=== PATIENT | male | born 1955 | race Caucasian/White ===

== ENCOUNTER 2018-10-22 19:31 | Emergency (ER) | payer MEDICARE, MEDICAID ==
[2018-10-22 20:16] VITALS: BP 170/63
--- NOTE | 2018-10-22 22:05 | EDM.PDOC ---
ED HPI GENERAL MEDICAL PROBLEM - General Chief Complaint: General Stated Complaint: MEDICAL Time Seen by Provider: 10/22/18 20:17 Source of Information: Reports: Patient, Other (Caregiver) History Limitations: Reports: Physical Impairment, Other (Mental Impairment, baseline ) - History of Present Illness INITIAL COMMENTS - FREE TEXT/NARRATIVE: Pleasant 63-year-old gentleman presents with caregiver from care home for concerns regarding possible urinary tract infection. Patient has a history of urinary tract infections in the past. Patient has had mild fevers with chills and sweats slight decreased appetite over the course of the last 2-3 days. He did not eat lunch or dinner this evening. Patient does not have any diarrhea or constipation. He does not complain of overt dysuria but does have a history of urinary tract infections. Patient has not had a cough or upper respiratory tract symptoms. Patient has otherwise been alert and cooperative with care just decreased appetite and fever concerns regarding recurrent urinary tract infection. Chart was reviewed patient did have a urine tract infection in August 2014 urine culture was positive for Escherichia coli which is pansensitive. Onset: Gradual Duration: Day(s): (3-4) Severity: Moderate Improves with: Reports: None Worsens with: Reports: None Associated Symptoms: Reports: Fever/Chills, Loss of Appetite - Related Data Allergies Allergy/AdvReac Type Severity Reaction Status Date / Time No Known Allergies Allergy Verified 10/22/18 20:08 Home Meds: Home Meds *Cranberry Tablet 1 tab PO DAILY 08/23/14 [History] Aspirin [Morgan Chewable Aspirin] 1 tab PO DAILY 08/23/14 [History] Docusate Sodium [Colace] 100 mg PO DAILY 08/23/14 [History] [place]-3 Fatty Acids [[place]-3] 680 mg PO DAILY 08/23/14 [History] Saw [place] 160 mg PO BID 08/23/14 [History] Bimatoprost [LUMIGAN 0.01% Ophth Soln] 1 drop EYEBOTH BEDTIME 10/22/18 [History] Cefdinir [Omnicef 250 MG/5 ML Susp] 300 mg PO BID 10 Days #120 bottle 10/22/18 [ Rx] Chlorhexidine Gluconate 1 dose PO BEDTIME 10/22/18 [History] Multivitamin [Multivitamins] 1 each PO DAILY 10/22/18 [History] Timolol Maleate [Timoptic 0.5% Ophth Soln] 1 drop EYEBOTH DAILY 10/22/18 [ History] Past Medical History HEENT History: Reports: Glaucoma, Impaired Vision Genitourinary History: Reports: UTI, Recurrent Psychiatric History: Reports: Learning Disability Social & Family History - Tobacco Use Smoking Status *Q: Never Smoker - Caffeine Use Caffeine Use: Reports: Coffee - Recreational Drug Use Recreational Drug Use: No - Living Situation & Occupation Living situation: Reports: Single (Lives in care home with care givers) ED ROS GENERAL - Review of Systems Review Of Systems: ROS reveals no pertinent complaints other than HPI. ED EXAM, RENAL/ - Physical Exam Exam: See Below Exam Limited By: Other (Mental Limitations) General Appearance: Alert, WD/WN, No Apparent Distress Ears: Normal External Exam, Normal Canal, Hearing Grossly Normal, Normal TMs Nose: Normal Inspection, Normal Mucosa, No Blood Throat/Mouth: Normal Inspection, Normal Lips, Normal Teeth, Normal Gums, Normal Oropharynx, Normal Voice, No Airway Compromise Head: Normocephalic Respiratory/Chest: No Respiratory Distress, Lungs Clear, Normal Breath Sounds, No Accessory Muscle Use, Chest Non-Tender Cardiovascular: Normal Peripheral Pulses, Regular Rate, Rhythm, No Edema, No Gallop, No JVD, No Murmur, No Rub GI/Abdominal: Normal Bowel Sounds, Soft, No Organomegaly, Tender (across lower abdomen to palpation ) (Male) Exam: Deferred Rectal (Males) Exam: Deferred Back Exam: No: CVA Tenderness (R), CVA Tenderness (L) Extremities: Normal Inspection, Normal Range of Motion, Non-Tender, Normal Capillary Refill, No Pedal Edema Neurological: Alert, Oriented, CN II-XII Intact, Normal Cognition (baseline per caregiver. ), Normal Gait, Normal Reflexes, No Motor/Sensory Deficits Psychiatric: Normal Affect, Normal Mood, Other (baseline per caregiver. He is anxious to return to care home. ) Skin Exam: Warm, Dry, Intact, Normal Color Lymphatic: No Adenopathy Course - Vital Signs Last Recorded V/S: Last Vital Signs Temp 37.0 C 10/22/18 20:16 Pulse 60 10/22/18 20:16 Resp 17 10/22/18 20:16 BP 170/63 H 10/22/18 20:16 Pulse Ox 98 10/22/18 20:16 - Orders/Labs/Meds Orders: Active Orders 24 hr Category Date Time Status CULTURE URINE [RM] Routine Lab 10/22/18 20:00 Received Labs: Laboratory Tests 10/22/18 10/22/18 10/22/18 Range/Units 20:25 20:25 21:04 WBC 4.4 L (4.5-11.0) K/uL RBC 4.10 L (4.30-5.90) M/uL Hgb 12.7 (12.0-15.0) g/dL Hct 38.1 L (40.0-54.0) % MCV 93 (80-98) fL MCH 31 (27-31) pg MCHC 33 (32-36) % Plt Count 97 L (150-400) K/uL Neut % (Auto) 81 H (36-66) % Lymph % (Auto) 8 L (24-44) % [place] % (Auto) 9 H (2-6) % Eos % (Auto) 2 (2-4) % Baso % (Auto) 0 (0-1) % Sodium 140 (140-148) mmol/L Potassium 3.9 (3.6-5.2) mmol/L Chloride 101 (100-108) mmol/L Carbon Dioxide 32 (21-32) mmol/L Anion Gap 7.3 (5.0-14.0) mmol/L BUN 26 H (7-18) mg/dL Creatinine 0.9 (0.8-1.3) mg/dL Est Cr Clr Drug Dosing 74.98 mL/min Estimated GFR (MDRD) > 60 (>60) Glucose 145 H (74-106) mg/dL Calcium 8.7 (8.5-10.1) mg/dL Total Bilirubin 0.9 (0.2-1.0) mg/dL AST 24 (15-37) U/L ALT 24 (12-78) U/L Alkaline Phosphatase 89 (46-116) U/L Total Protein 6.8 (6.4-8.2) g/dL Albumin 3.5 (3.4-5.0) g/dL Globulin 3.3 (2.3-3.5) g/dL Albumin/Globulin Ratio 1.1 L (1.2-2.2) Urine Color Yellow Urine Appearance Slightly cloudy Urine pH 5.0 (4.5-8.0) Ur Specific [place] 1.020 (1.008-1.030) Urine Protein 30 H (NEGATIVE) mg/dL Urine Glucose (UA) Normal (NEGATIVE) mg/dL Urine Ketones Negative (NEGATIVE) mg/dL Urine Occult Blood Moderate (NEGATIVE) Urine Nitrite Negative (NEGAITVE) Urine Bilirubin Negative (NEGATIVE) Urine Urobilinogen Normal (NORMAL) mg/dL Ur Leukocyte Esterase Large (NEGATIVE) Urine RBC 5-10 H (0-5) Urine WBC >100 H (0-5) Ur Epithelial Cells Few Amorphous Sediment Not seen Urine Bacteria Many Urine Mucus Not seen Meds: Medications Discontinued Medications Generic Name Dose Route Start Last Admin Trade Name Freq PRN Reason Stop Dose Admin Ceftriaxone Sodium 1 gm/ 0 gm 10/22/18 22:07 10/22/18 22:28 Lidocaine HCl 2.1 ml IM 10/22/18 22:08 1 inj ONETIME ONE Administration - Re-Assessments/Exams Free Text/Narrative Re-Assessment/Exam: Discussed previous urinary tract infection culture results. I believe patient likely has pyelonephritis due to systemic symptoms at this point in time. Patient's given a dose of Rocephin without adverse reaction. Omnicef for be prescribed. Urine culture will be completed to ensure appropriate antibiotic coverage. Tylenol or ibuprofen recommended increased fluid intake and close follow-up with primary provider to review urine culture results. Return to the ER sooner if concerns change nor symptoms are not improving over the course of next 72 hours. 10/22/18 22:44 Departure - Departure Time of Disposition: 22:45 Disposition: Home, Self-Care 01 Condition: Good Clinical Impression: UTI, Urinary tract infectious disease - Discharge Information Prescriptions: Cefdinir [Omnicef 250 MG/5 ML Susp] 300 mg PO BID 10 Days #120 bottle Instructions: Urine Culture and Sensitivity Testing, Antibiotic Medicine, Adult , Urinary Tract Infection, Adult Referrals: Oscar Beltran MD [Primary Care Provider] - Forms: ED Department Discharge Additional Instructions: UTI 1. PUSH FLUIDS. 2. IBUPROFEN 800MG EVERY 6-8 HOURS FOR COMFORT, FEVER AND PAIN. 3. ORAL ANTIBIOTIC PRESCRIBED. OMNICEF 300mg (6ml) BID x 10 days 120ml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ischarge Instructions Urinary Tract Infection You or your child have been diagnosed with a urinary tract infection, or UTI. The urinary tract includes the kidneys (which make urine/pee), ureters (the tubes that carry urine/pee from the kidneys to the bladder), the bladder (which stores urine/pee), and urethra (the tube that carries urine/pee out of the bladder). Urinary tract infections occur when bacteria travel up the urethra into the bladder (bladder infection) and, in some cases, from there into the kidneys (kidney infection). Generally, every Emergency Department visit should have a follow-up clinic visit with either a primary or a specialty clinic/provider. Please follow-up as instructed by your emergency provider today. Return to the Emergency Department if: You or your child have severe back pain. You or your child are vomiting (throwing up) so that you cannot take your medicine. You or your child have a new fever (had not previously had a fever) over 101 F. You or your child have confusion or are very weak, or feel very ill. Your child seems much more ill, will not wake up, will not respond right, or is crying for a long time and will not calm down. You or your child are showing signs of dehydration. These signs may include decreased urination (pee), dry mouth/gums/tongue, or decreased activity. Follow-up with your provider: Children under 24 months need to be seen by their regular provider within one week after a diagnosis of a UTI. It may be necessary to do some more tests to look at the bud kidney or bladder. You should begin to feel better within 24 48 hours of starting your antibiotic; follow-up with your regular clinic/doctor/provider if this is not the case. Treatment: You will be treated with an antibiotic to kill the bacteria. We have to make an educated guess, based on what we know about common bacteria and antibiotics, as to which antibiotic will work for your infection. We will be correct most times but there will be some cases where the antibiotic chosen is not correct (see urine cultures below). Take a pain medication such as acetaminophen (Tylenol) or ibuprofen (Advil , Motrin, Nuprin). Phenazopyridine (Pyridium, Uristat) is a prescription medication that numbs the bladder to reduce the burning pain of some UTIs. The same medication is available in a non-prescription version (Azo-Standard, Urodol). This medication will change the color of the urine and tears (usually blue or orange) . If you wear contacts, do not wear them while taking this medication as they may be stained by the medication. Urine Cultures: If indicated, a urine culture may have been performed today. This test generally takes 24-48 hours to complete so the results are not known at this time. The results can confirm that an infection is present but also determine which antibiotic is effective for the specific bacteria that is causing the infection. If your urine culture shows that the antibiotic you were given today will not work to treat your infection, we will attempt to contact you to make arrangements to change the antibiotic. If the culture confirms that the antibiotic is effective for your infection, you will not be contacted. We often recommend follow-up with your regular physician/provider on the culture results regardless of this process. Antibiotic Warning: If you have been placed on antibiotics watch for signs of allergic reaction. These include rash, lip swelling, difficulty breathing, wheezing, and dizziness. If you develop any of these symptoms, stop the antibiotic immediately and go to an emergency room or urgent care for evaluation. Probiotics: If you have been given an antibiotic, you may want to also take a probiotic pill or eat yogurt with live cultures. Probiotics have "good bacteria " to help your intestines stay healthy. Studies have shown that probiotics help prevent diarrhea and other intestine problems (including C. diff infection) when you take antibiotics. You can buy these without a prescription in the pharmacy section of the store. If you were given a prescription for medicine here today, be sure toread all of the information (including the package insert) that comes with your prescription. This will include important information about the medicine, its side effects, and any warnings that you need to know about. The pharmacist who fills the prescription can provide more information and answer questions you may have about the medicine. If you have questions or concerns that the pharmacist cannot address, please call or return to the Emergency Department. Remember that you can always come back to the Emergency Department if you are not able to see your regular provider in the amount of time listed above, if you get any new symptoms, or if there is anything that worries you. - My Orders Last 24 Hours: My Active Orders 10/22/18 20:00 CULTURE URINE [RM] Routine - Assessment/Plan Last 24 Hours: My Active Orders 10/22/18 20:00 CULTURE URINE [RM] Routine
[2018-10-22] MEDS ORDERED: cefTRIAXone 1 GM, Lidocaine 1% 2.1 ML IM ONE ×2 (22:07)
== END 2018-10-22 23:02 | disposition home or self-care (01) ==
LOC: JP.ED 19:31
DX: N39.0 Urinary tract infection, site not specified (principal); Z79.82 Long term (current) use of aspirin; Z79.899 Other long term (current) drug therapy
CPT/HCPCS: 36415; 80053; 81001; 85025; 87086; 87088; 87186; 96372; 99283; J0696; J2001

== ENCOUNTER 2022-11-27 19:26 | Emergency (ER) | payer MEDICARE, MEDICAID ==
[2022-11-27 21:54] LABS: APPEARANCE,URINE CLOUDY (CLEAR); BILIRUBIN,URINE NEGATIVE (NEGATIVE); COLOR,URINE YELLOW (YELLOW); GLUCOSE,URINE NEGATIVE (NEGATIVE); KETONES,URINE NEGATIVE (NEGATIVE); LEUKOCYTE ESTERASE,URINE SMALL (NEGATIVE); NITRITE,URINE POSITIVE (NEGATIVE); OCCULT BLOOD,URINE TRACE-INTACT (NEGATIVE); PROTEIN,URINE NEGATIVE (NEGATIVE); UROBILINOGEN,URINE 0.2 EU/dL (0.2-1.0)
[2022-11-27 21:57] LABS: AMORPHOUS SEDIMENT,URINE NOT SEEN; BACTERIA,URINE MANY; EPITHELIAL CELLS,URINE FEW; MUCUS,URINE FEW; RBC,URINE 0-5 (0-5); WBC,URINE 40-50 (0-5)
[2022-11-27 22:07] VITALS: BP 148/52; PULSE 47
== END 2022-11-27 22:19 | disposition home or self-care (01) ==
LOC: JP.ED 19:26
DX: S00.03XA Contusion of scalp, initial encounter (principal); S80.212A Abrasion, left knee, initial encounter; N39.0 Urinary tract infection, site not specified; I25.10 Atherosclerotic heart disease of native coronary artery without angina pectoris; I25.2 Old myocardial infarction; Z79.899 Other long term (current) drug therapy; Z79.82 Long term (current) use of aspirin; W01.198A Fall on same level from slipping, tripping and stumbling with subsequent striking against other object, initial encounter; Y92.480 Sidewalk as the place of occurrence of the external cause
CPT/HCPCS: 70450; 81001; 87086; 87088; 87186; 99284

== ENCOUNTER 2024-08-20 16:17 | Emergency (ER) | payer MEDICARE, MEDICAID ==
[2024-08-20 17:42] LABS: BASOPHILS PERCENT AUTO 0.4 % (0.1-1.3); EOSINOPHILS ABSOLUTE AUTO 0.17 K/uL (0.00-0.40); EOSINOPHILS PERCENT AUTO 3.4 % (0.0-5.4); HEMATOCRIT 29.5 % (38.4-49.7); HEMOGLOBIN 9.9 g/dL (12.9-16.9); IMMATURE GRAN PERCENT AUTO 0.4 % (0.0-0.7); LYMPHOCYTES ABSOLUTE AUTO 1.21 K/uL (0.8-3.3); LYMPHOCYTES PERCENT AUTO 24.5 % (11.4-47.7); MEAN CORPUSCULAR HEMOGLOBIN 31.2 pg (31.6-35.5); MEAN CORPUSCULAR HGB CONC 33.6 g/dL (31.6-35.5); MEAN CORPUSCULAR VOLUME 93.1 fL (81.4-99.0); MONOCYTES ABSOLUTE AUTO 0.46 K/uL (0.20-0.90); MONOCYTES PERCENT AUTO 9.3 % (3.3-12.6); NEUTROPHILS ABSOLUTE AUTO 3.05 K/uL (1.0-7.6); PLATELET COUNT,PLT 134 K/uL (130-375); RED BLOOD CELL COUNT 3.17 M/uL (4.14-5.76); WHITE BLOOD CELL COUNT,WBC 4.9 K/uL (3.2-11.0)
[2024-08-20 17:44] LABS: BASOPHILS ABSOLUTE AUTO 0.02 K/uL (0.00-0.10); IMMATURE GRAN ABSOLUTE AUTO 0.02 K/uL (0.00-0.23)
[2024-08-20 17:57] LABS: CALCIUM 8.3 mg/dL (8.5-10.1); CREATININE 1.8 mg/dL (0.8-1.3); EST CRCL DRUG DOSING (CG) 34.64 mL/min; POTASSIUM,K 4.5 mmol/L (3.6-5.2)
[2024-08-20 17:58] LABS: ANION GAP 4.5 mmol/L (5.0-14.0)
[2024-08-20] MEDS: Sodium Chloride 0.9% 1,000 ML IV SCH ×2 (18:44→19:48)
[2024-08-20 19:27] LABS: APPEARANCE,URINE CLOUDY (CLEAR); BILIRUBIN,URINE NEGATIVE (NEGATIVE); COLOR,URINE YELLOW (YELLOW); GLUCOSE,URINE 250 mg/dL (NEGATIVE); KETONES,URINE NEGATIVE (NEGATIVE); LEUKOCYTE ESTERASE,URINE MODERATE (NEGATIVE); NITRITE,URINE NEGATIVE (NEGATIVE); OCCULT BLOOD,URINE NEGATIVE (NEGATIVE); PH,URINE 5.5 (5.0-8.0); PROTEIN,URINE NEGATIVE (NEGATIVE)
[2024-08-20 19:33] LABS: AMORPHOUS SEDIMENT,URINE NOT SEEN; BACTERIA,URINE MANY; EPITHELIAL CELLS,URINE MODERATE; MUCUS,URINE FEW; RBC,URINE 0-5 (0-5); WBC,URINE 40-50 (0-5)
[2024-08-20] MEDS: cefTRIAXone 2 GM in Sodium Chloride 0.9% 50 ML IV ONE (19:46)
[2024-08-20 20:03] VITALS: BP 151/64; PULSE 50
== END 2024-08-20 20:50 | disposition home or self-care (01) ==
LOC: JP.ED 16:17
DX: N39.0 Urinary tract infection, site not specified (principal); N28.9 Disorder of kidney and ureter, unspecified; E86.0 Dehydration; I25.10 Atherosclerotic heart disease of native coronary artery without angina pectoris; Z79.899 Other long term (current) drug therapy
CPT/HCPCS: 36415; 71045; 80048; 81001; 83605; 85025; 96361; 96365; 99285; J0696; J7030

== ENCOUNTER 2024-11-19 14:18 | Emergency (ER) | payer MEDICAID, MEDICARE ==
[2024-11-19 14:41] VITALS: BP 144/51; PULSE 54
[2024-11-19] MEDS: Doxycycline 100 MG Cap PO ONE (14:41)
== END 2024-11-19 15:03 | disposition home or self-care (01) ==
LOC: JP.ED 14:18
DX: S40.862A Insect bite (nonvenomous) of left upper arm, initial encounter (principal); L03.114 Cellulitis of left upper limb; I25.10 Atherosclerotic heart disease of native coronary artery without angina pectoris; Z79.82 Long term (current) use of aspirin; Z79.899 Other long term (current) drug therapy; W57.XXXA Bitten or stung by nonvenomous insect and other nonvenomous arthropods, initial encounter; Y93.89 Activity, other specified
CPT/HCPCS: 99281; A9270